=== PATIENT | male | born 2000 | race Two or more races ===

== ENCOUNTER 2024-12-28 18:32 | Emergency (ER) | payer MEDICAID, SELFPAY ==
[2024-12-28 18:32] VITALS: BMI 37.3
[2024-12-28 19:09] VITALS: BP 118/79; PULSE 78; RESP 18; TEMP 36.9; O2SAT 98
--- NOTE | 2024-12-28 19:21 | XR_ITS ---
Examination: Fingers, right hand 3 views Technique: AP, oblique, lateral views right hand and fingers. Exam date and time: December 28, 2024, 1925 hours INDICATIONS: Injury to the hand today with finger pain FINDINGS: No acute fractures No dislocations No foreign bodies IMPRESSION: No acute fractures
--- NOTE | 2024-12-28 19:22 | PD.EDHAND ---
Upper Extremity Injury RME/HPI General Chief Complaint: Hand/Wrist Problems Stated Complaint: INJURY TO RIGHT FINGERS TODAY Time Seen by Provider: 12/28/24 18:34 Source: patient, RN notes reviewed and old records reviewed Arrival date/time: 12/28/24 18:32 Mode of arrival: ambulatory Limitations: no limitations RME / HPI RME / HPI narrative: 24yom presents to ED for finger injury that occurred today. Patient reports accidentally slamming distal right 3rd and 4th fingers in the refrigerator door, c/o pain and swelling. No deformity reported. 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 Related Data Home Medications ?Medication ?Instructions ?Recorded ?Confirmed acetaminophen 325 mg capsule 325 mg PO QID PRN Pain 12/22/20 12/22/20 (Tylenol) ibuprofen 600 mg tablet 600 mg PO TID PRN Pain 12/22/20 12/22/20 Held on 12/23/20. Instructions: Resume on 12/24/20. Previous Rx's ?Medication ?Instructions ?Recorded ibuprofen 600 mg tablet 600 mg PO Q6H PRN pain #20 tabs 12/28/24 ibuprofen 600 mg tablet 600 mg PO Q6H PRN pain #20 tabs 12/28/24 Allergies Allergy/AdvReac Type Severity Reaction Status Date / Time No Known Allergies Allergy Verified 12/28/24 18:34 Review of Systems Review of Systems Systems Reviewed: All systems reviewed, normal except as documented Musculoskeletal Musculoskeletal: Reports arthralgias, Denies deformity, Reports joint swelling, Denies limited range of motion, Denies numbness and Denies tingling Comments: Reports finger pain Neurologic Neurologic: Denies numbness and Denies tingling Past Medical History Past Medical History GASTROINTESTINAL: Positive Obesity Surgical History OTHER SURGICAL HX: denies pshx Social History SMOKING STATUS: Never smoker SUBSTANCE USE: does not use ALCOHOL: Never ED Exam General Limitations: Present no limitations General appearance: Present alert and in no apparent distress Head Head exam: Present atraumatic and normocephalic Eye Eye exam: Present normal appearance, PERRL and EOMI ENT ENT exam: Present normal exam and mucous membranes moist Neck Neck exam: Present normal inspection and full ROM Chest Chest inspection: Present normal inspection and symmetric chest wall rise Respiratory Respiratory exam: Present normal lung sounds bilaterally; Absent respiratory distress Cardiovascular Cardiovascular exam: Present regular rate and normal rhythm Extremities Exam Extremities exam: Present other (Mild tenderness/swelling to distal right 3rd/4th fingers with contusion. No subungual hematoma. FROM. <2s cap refill, sensation intact) Neurological Exam Neurological exam: Present alert and oriented X3 Psychiatric Psychiatric exam: Present normal affect and normal mood Skin Skin exam: Present warm, dry and intact Course Quality Measures none Orders Category Date Time Status XR finger RT min 2V Stat Exams 12/28/24 19:21 Completed Ibuprofen Tab [Motrin Tab] Med 12/28/24 19:21 Discontinued 600 mg PO X1 ONE Vital Signs Vital signs: Vital Signs Temperature 98.5 F 12/28/24 19:09 Pulse Rate 78 12/28/24 19:09 Respiratory Rate 18 12/28/24 19:09 Blood Pressure 118/79 12/28/24 19:09 Pulse Oximetry (%) 98 12/28/24 19:09 Oxygen Delivery Method Room Air 12/28/24 19:09 Extremity Injury MDM Narrative MDM Narrative:: 24yom presents to ED for finger injury that occurred today. Patient reports accidentally slamming distal right 3rd and 4th fingers in the refrigerator door, c/o pain and swelling. No deformity reported. 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 X-rays negative. Patient is neurovascularly intact. Encouraged RICE therapy, Motrin/Tylenol prn pain. Stable for discharge, RTED precautions given. Patient data External records reviewed:: [facility] previous records (10/03/2019 admission for perforation of appendix, abdominal pain) Clinical information provided by:: patient Social determinants that could affect healthcare access:: other (specify) (Poor access to healthcare, unemployed) Patient has the following chronic illnesses:: Obesity How is presenting disease/condition affected by chronic disease/condition?: uneffected by Evaluation data The following diagnostics were reviewed and interpreted by me:: radiology exam(s) Lab and/or radiology exams considered but not ordered:: None Interpretation Summary: Finger x-rays: No fracture per my read Medications / Prescriptions Medications or Prescriptions considered but not ordered:: None Medication administrations:: Medication Administration History Discontinued Medications Ibuprofen (Ibuprofen Tab 600 Mg Tablet) 600 mg PO X1 ONE Stop: 12/28/24 19:22 Last Admin: 12/28/24 19:37 Dose: 600 mg Documented By: MF Above medication administered in ED Consultations Consultation(s) initiated? (list below): No Diagnosis Upper Extremity Injury Differential Diagnosis: other (Sprain, strain, contusion, MSK pain, fracture, dislocation) Most likely diagnosis given after review of the tests above:: Finger contusion Admission Indicated Admission indicated?: not indicated Admission Request Was there a request for admission?: No Disposition Plan Disposition Plan: Discharge Discharge Attestation Discharge Attestation: The patient and all family members were given an opportunity to ask questions and understood the discharge instructions. Discharge instructions specifically effects, indications for sooner follow up or return to the emergency department, and the expected course of current diagnosis. Patient condition: Stable Discharge Plan Plan Patient Disposition: HOME (Self Care) Patient condition on transfer: Stable Prescriptions/Referrals Prescriptions/Med Rec: New ibuprofen 600 mg tablet 600 mg PO Q6H PRN (Reason: pain) Qty: 20 0RF ibuprofen 600 mg tablet 600 mg PO Q6H PRN (Reason: pain) Qty: 20 0RF No Action ibuprofen 600 mg Tablet 600 mg PO TID PRN (Reason: Pain) acetaminophen [Tylenol] 325 mg Capsule 325 mg PO QID PRN (Reason: Pain) Referrals: No Primary/Family,Physician [Primary Care Provider] - In 1 week Problem List Clinical Impression: Contusion of right middle finger, Contusion of right ring finger Patient/Caregiver Discharge Instructions Education Materials: ED Finger Contusion Additional Instructions: Ibuprofen or Tylenol can be taken as needed for pain. Ice application can help with swelling. Print Language: Colombian Stand Alone Forms: Brianna Award Info., Patient Portal Info Letter PA/CUFF PRESSER Supervising Physician PA/CUFF PRESSER Supervising Physician: Lewis
[2024-12-28] MEDS: IBUPROFEN TAB 600 MG TABLET PO (19:37)
== END 2024-12-28 21:00 | disposition home or self-care (01) ==
PROVIDERS: Emergency Provider Physician Assistant
DX: S60.031A Contusion of right middle finger without damage to nail, initial encounter (principal); S60.041A Contusion of right ring finger without damage to nail, initial encounter; W22.09XA Striking against other stationary object, initial encounter
CPT/HCPCS: 73140; 99282; A9270